=== PATIENT | female | born 1990 | race Caucasian/White ===

== ENCOUNTER 2019-10-24 19:24 | Emergency (ER) | payer BC ==
[~2019-10-24] VITALS: Ht 154.9 cm; Wt 76.2 kg
[2019-10-24] MEDS ORDERED: ESZO2TAB22 PO (20:17)
[2019-10-24] MEDS ORDERED: BUPR300T52 PO (20:17)
[2019-10-24] MEDS ORDERED: CLON1TAB PO (20:17)
[2019-10-24] MEDS ORDERED: [UNRECOGNIZED DRUG - CODE] PO (20:17)
[2019-10-24] MEDS ORDERED: SUMA100T16 PO (20:17)
[2019-10-24] MEDS ORDERED: VENL100T4 PO (20:17)
--- NOTE | 2019-10-24 20:51 | NUR ---
Dr. Cobian at bedside for MSE.
[2019-10-24] MEDS ORDERED: DEXAMETHASONE SOD PHOSPHATE 4 MG INJ IV ONE (21:00)
[2019-10-24] MEDS ORDERED: IV NORMAL SALINE 1000 ML BAG IV ONE ×2 (21:00→22:45)
[2019-10-24] MEDS ORDERED: PROCHLORPERAZINE EDISYLATE 10 MG/2 ML VIAL IV ONE (21:00)
[2019-10-24] MEDS ORDERED: diphenhydrAMINE 50 MG/1 ML VIAL IV ONE (21:00)
[2019-10-24] MEDS ORDERED: KETOROLAC TROMETHAMINE 30 MG INJ IVP ONE (21:00)
[2019-10-24] MEDS ORDERED: KETOROLAC TROMETHAMINE 30 MG INJ ONE (21:04)
[2019-10-24] MEDS ORDERED: diphenhydrAMINE 50 MG/1 ML VIAL ONE (21:05)
[2019-10-24] MEDS ORDERED: DEXAMETHASONE SOD PHOSPHATE 4 MG INJ ONE (21:05)
[2019-10-24] MEDS ORDERED: PROCHLORPERAZINE EDISYLATE 10 MG/2 ML VIAL ONE (21:05)
--- NOTE | 2019-10-24 22:51 | NUR ---
Pt states feeling much better and wants to go home. made aware.
[2019-10-24 23:05] VITALS: BP 155/98
--- NOTE | 2019-10-24 23:05 | NUR ---
MSE COMPLETED, IV D/C'D INTACT, ACI GIVEN. PT AMBULATED W/O DIFF/TOOK ALL BELONGINGS.
== END 2019-10-24 23:06 | disposition home or self-care (01) ==
LOC: ER 19:26
DX: G43.909 Migraine, unspecified, not intractable, without status migrainosus (principal); F32.9 Major depressive disorder, single episode, unspecified; F41.9 Anxiety disorder, unspecified; Z79.899 Other long term (current) drug therapy
CPT/HCPCS: 96361; 96374; 96375; 99283; J0780; J1100; J1200; J1885; A4663; J7030